=== PATIENT | male | born 1965 | race Hispanic/Latino ===

== ENCOUNTER 2018-03-07 20:06 | Inpatient (IN) | payer OTHER ==
[~2018-03-07 20:06] MED LIST: ISOVUE-370 76%-LOCM 1 ML ONE
[2018-03-07 21:39] LABS: #Basophils 0.1 thou/uL (0.0-0.2); #Eosinphils 0.1 thou/uL (0.0-0.7); #Lymphocytes 1.7 thou/uL (1.20-3.40); #Monocytes 0.6 thou/uL (0.11-0.59); #Neutrophils 7.8 thou/uL (1.40-6.50); %Basophils 0.8 % (0.0-1.0); %Eosinophils 0.6 % (0.0-10.0); %Lymphocytes 16.6 % (21.0-51.0); %Monocytes 6.2 % (0.0-10.0); %Neutrophils 75.7 % (42.0-75.0); Hemoglobin 12.8 g/dL (14.0-18.0); Mean Corpuscular HGB CONC 33.6 g/dL (32.0-36.0); Mean Corpuscular Hemoglobin 32.3 pg (27.0-31.0); Mean Corpuscular Volume 96.3 fL (78.0-98.0); Mean Platelet Volume 8.5 fL (7.4-10.4); Platelet Count 145 thou/uL (130-400); RBC Distribution Width 13.2 % (11.5-14.5); Red Blood Cell (RBC) Count 3.95 mill/uL (4.70-6.10); White Blood Cell (WBC) Count 10.3 thou/uL (4.8-10.8)
[2018-03-07 21:56] LABS: ALT (SGPT) 59 U/L (8-55); AST (SGOT) 67 U/L (5-34); Albumin 3.3 g/dL (3.5-5.0); Alkaline Phosphatase 102 U/L (40-150); Anion Gap 13 mmol/L (10-20); BUN (Urea Nitrogen) 19 mg/dL (8.4-25.7); Bilirubin, Total 1.5 mg/dL (0.2-1.2); Calc. Creatinine Clearance 0 mL/min (70-130); Calcium 8.5 mg/dL (7.8-10.44); Carbon Dioxide 23 mmol/L (22-29); Chloride 112 mmol/L (98-107); Estimated GFR-MDRD 58; Globulin 2.8 g/dL (2.4-3.5); Glucose 153 mg/dL (70-105); Lipase 28 U/L (8-78); Potassium 3.8 mmol/L (3.5-5.1); Protein, Total 6.1 g/dL (6.0-8.3); Sodium 144 mmol/L (136-145)
--- NOTE | 2018-03-07 23:19 | CT ---
CT ABDOMEN AND PELVIS WITH IV CONTRAST 03/07/18 HISTORY: Abdominal pain. FINDINGS: Mild atelectasis at the lung bases. Projecting inferiorly from the anterior segment left liver lobe, an oval heterogeneously hyperdense mass measures up to 6.5 cm length x 4.2 cm width x 4.2 cm depth. I mmediately inferior to it is a large heterogeneous somewhat lobular structure which is favored to rep resent fluid such as clotted blood. Small amount of free fluid is also present within the right upper and left upper quadrant and in the dependent portion of the pelvis and extending into a left inguina l hernia. Hyperdense stone in the dependent portion of the gallbladder lumen. Radiopaque TIPS stent. Urinary bladder is decompressed. IMPRESSION: Abnormality of the liver favored to represent a hepatoma with adjacent hemorrhage and hematoma. Cholelithiasis. TIPS stent. Atherosclerosis. Findings were called to Dr. Pederson in the Emergency Department at 2308 hours. Code CR POS: [facility]
[2018-03-08] MEDS ORDERED: Ondansetron HCl/PF 4 MG/2 ML Vial IVP PRN (00:26)
[2018-03-08 00:48] LABS: INR-International Normal Ratio 1.3; PTT 30.1 SEC (22.9-36.1); Prothrombin Time 16.3 SEC (12.0-14.7)
[2018-03-08] MEDS ORDERED: Acetaminophen 500 MG TAB ONE (01:06)
[2018-03-08 01:24] LABS: Lactic Acid 2.7 mmol/L (0.5-2.2)
[2018-03-08 03:44] LABS: #Lymphocytes 1.4 thou/uL (1.20-3.40); #Monocytes 0.6 thou/uL (0.11-0.59); #Neutrophils 8.5 thou/uL (1.40-6.50); %Basophils 0.2 % (0.0-1.0); %Eosinophils 0.2 % (0.0-10.0); %Lymphocytes 13.1 % (21.0-51.0); %Monocytes 6.1 % (0.0-10.0); %Neutrophils 80.5 % (42.0-75.0); Hemoglobin 12.4 g/dL (14.0-18.0); Mean Corpuscular HGB CONC 33.9 g/dL (32.0-36.0); Mean Corpuscular Hemoglobin 32.5 pg (27.0-31.0); Mean Corpuscular Volume 96.1 fL (78.0-98.0); Mean Platelet Volume 8.4 fL (7.4-10.4); Platelet Count 141 thou/uL (130-400); RBC Distribution Width 13.3 % (11.5-14.5); Red Blood Cell (RBC) Count 3.81 mill/uL (4.70-6.10); White Blood Cell (WBC) Count 10.5 thou/uL (4.8-10.8)
[2018-03-08 04:04] LABS: Anion Gap 15 mmol/L (10-20); BUN (Urea Nitrogen) 22 mg/dL (8.4-25.7); Calc. Creatinine Clearance 0 mL/min (70-130); Calcium 8.4 mg/dL (7.8-10.44); Carbon Dioxide 14 mmol/L (22-29); Chloride 118 mmol/L (98-107); Estimated GFR-MDRD 68; Glucose 134 mg/dL (70-105); Potassium 4.6 mmol/L (3.5-5.1); Sodium 142 mmol/L (136-145)
[2018-03-08 04:39] VITALS: BMI 42.4
[2018-03-08] MEDS: Sodium Chloride 0.9% 1,000 ML IV SCH ×2 (05:05→14:59)
[2018-03-08] MEDS: Meropenem 500 MG in Sodium Chloride 0.9% 100 ML IVPB SCH ×3 (05:16→18:02)
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
[2018-03-08 07:03] LABS: Hemoglobin 11.8 g/dL (14.0-18.0)
--- NOTE | 2018-03-08 07:36 | ULT ---
SONOGRAM RIGHT UPPER QUADRANT: Date: 03/07/18 HISTORY: Liver mass. Abdominal pain. FINDINGS: Echogenic stone within the gallbladder lumen. Common duct is 0.5 cm. Liver is very heterogeneous. Sma ll amount of free fluid within the upper abdomen. Heterogeneous mass at the right liver lobe measures 8.9 cm greatest diameter on this exam. IMPRESSION: 1. Cholelithiasis. 2. Liver mass with free fluid. Please see report from corresponding CT abdomen for additional detail . POS: [facility]
[2018-03-08] MEDS ORDERED: Senokot 8.6 MG TAB PO PRN (07:54)
[2018-03-08] MEDS ORDERED: Calcium Carbonate 500 MG ChewTAB PO PRN (07:54)
[2018-03-08] MEDS ORDERED: Famotidine/PF 20 mg/2ml Vial SLOW IVP SCH (09:00)
[2018-03-08 10:13] LABS: Hemoglobin 12.1 g/dL (14.0-18.0); Platelet Count 127 thou/uL (130-400)
[2018-03-08 10:34] LABS: Anion Gap 15 mmol/L (10-20); BUN (Urea Nitrogen) 24 mg/dL (8.4-25.7); Calc. Creatinine Clearance 137 mL/min (70-130); Calcium 8.6 mg/dL (7.8-10.44); Carbon Dioxide 18 mmol/L (22-29); Chloride 116 mmol/L (98-107); Estimated GFR-MDRD 74; Glucose 115 mg/dL (70-105); Magnesium 1.6 mg/dL (1.6-2.6); Phosphorus 3.7 mg/dL (2.3-4.7); Potassium 4.8 mmol/L (3.5-5.1); Sodium 144 mmol/L (136-145)
[2018-03-08 17:55] LABS: Hemoglobin 11.1 g/dL (14.0-18.0); Platelet Count 116 thou/uL (130-400)
[2018-03-08 18:07] LABS: Lactic Acid 2.2 mmol/L (0.5-2.2)
[2018-03-08 18:24] VITALS: BP 157/69; TEMP 99
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
--- NOTE | 2018-03-09 13:03 | DIS ---
DATE OF DISCHARGE: 03/08/2018 DISCHARGE DISPOSITION: To [facility], [place]. BRIEF HOSPITAL COURSE: Patient is a 52-year-old male with cirrhosis secondary to chronic hepatitis C , who presented to the emergency room with abdominal discomfort. He underwent a CT scan of the abdom en and pelvis in the emergency room that showed suspected hepatoma with adjacent hemorrhage and hemat wilfrid. He also has a history of TIPS, stent in the past. The patient was evaluated by General Surgery , Dr. Mo, who recommended transferring the patient to [facility] for higher level of care. Right uppe r quadrant ultrasound was also done that showed cholelithiasis. The case was discussed with General Surgery, Dr. Underwood, over the phone. Dr. Underwood accepted the patient. FINAL DIAGNOSES: 1. Abdominal discomfort. 2. Suspected hepatoma with hemorrhage and hematoma. 3. Cholelithiasis. 4. Cirrhosis secondary to chronic hepatitis C. 5. Hypertension. 6. History of pancreatitis. 7. History of transjugular intrahepatic portosystemic shunt, stent in the past. 8. Morbid obesity with a BMI of 42.5. 9. Chronic kidney disease, stage 2. 10. Lactic acidosis with lactate of 3.5 on admission and 2.2 at discharge. 11. Abnormal liver function tests. 12. Chronic anemia. 13. Thrombocytopenia. 14. Coagulopathy secondary to cirrhosis. TESTS PENDING AT DISCHARGE: Alpha-fetoprotein. Primary care physician advised to follow up on alpha-fetoprotein report. ALLERGIES: BENZODIAZEPINES. DISCHARGE MEDICATIONS: Same as admission medications. Please refer to the history and physical for further details. Plan of care was discussed with the patient in detail. He stated understanding.
== END 2018-03-08 19:56 | disposition short-term general hospital (02) | DRG 442 ==
LOC: ERS 20:06 → 2NO 03-08 03:46
PROVIDERS: ADMIT Hospitalist; ATTEND Hospitalist
DX: K76.89 Other specified diseases of liver (principal); E87.2 Acidosis; Z68.41 Body mass index [BMI] 40.0-44.9, adult; D68.9 Coagulation defect, unspecified; D13.4 Benign neoplasm of liver; B19.20 Unspecified viral hepatitis C without hepatic coma; K74.60 Unspecified cirrhosis of liver; D64.9 Anemia, unspecified; R73.9 Hyperglycemia, unspecified; I12.9 Hypertensive chronic kidney disease with stage 1 through stage 4 chronic kidney disease, or unspecified chronic kidney disease; N18.2 Chronic kidney disease, stage 2 (mild); E66.01 Morbid (severe) obesity due to excess calories; D69.6 Thrombocytopenia, unspecified; K80.20 Calculus of gallbladder without cholecystitis without obstruction
CPT/HCPCS: 36415; 74177; 76705; 80048; 80053; 82105; 83605; 83690; 83735; 84100; 85025; 85610; 85730; 87040; 93005; 96361; 96365; 96366; 96375; A4216; J2185; J2270; J7050; S0028